=== PATIENT | male | born 1965 | race Two or more races ===

== ENCOUNTER 2023-07-10 11:25 | Inpatient (IN) | payer MEDICAID ==
[~2023-07-10] VITALS: Ht 157.5 cm; Wt 69.9 kg
[2023-07-10 12:06] LABS: EOSINOPHILS % (AUTO) 1.7 % (1.0-6.0); HEMATOCRIT 40.3 % (41-53); HEMOGLOBIN 13.4 g/dL (13.5-17.5); LYMPHOCYTES % (AUTO) 34.4 % (22.0-44.0); MEAN CORPUSCULAR HEMOGLOBIN 30.1 pg (26.0-34.0); MEAN CORPUSCULAR HGB CONC 33.3 G/dL (31.0-37.0); MEAN CORPUSCULAR VOLUME 90 fL (80-100); MONOCYTES # (AUTO) 0.4 K/uL (0.1-1.0); MONOCYTES % (AUTO) 4.8 % (2.0-9.0); NEUTROPHILS # (AUTO) 5.1 K/uL (1.8-7.7); NEUTROPHILS % (AUTO) 58.1 % (40.0-70.0); PLATELET COUNT (AUTO) 187 K/uL (150-450); RED BLOOD CELL COUNT(AUTO) 4.46 MIL/uL (4.50-5.90); RED CELL DISTRIBUTION WIDTH 13.7 % (11.5-14.5); WHITE BLOOD COUNT (AUTO) 8.7 K/uL (4.5-11.0)
[2023-07-10 12:14] LABS: ANION GAP 11 mmol/L (8-16); CALCIUM, TOTAL 8.7 mg/dL (8.8-10.5); CARBON DIOXIDE 21 mmol/L (22-29); CHLORIDE 101 mmol/L (98-107); GLOMERULAR FILTR. RATE CALC > 60 mL/min (>60); GLUCOSE,RANDOM 154 mg/dL (70-110); POTASSIUM 3.9 mmol/L (3.5-5.1); SODIUM SERUM 133 mmol/L (136-145); UREA NITROGEN, BLOOD 16 mg/dL (7-18)
[2023-07-10 12:20] LABS: ALANINE AMINOTRANSFERASE 32 U/L (12-78); ALBUMIN 3.4 g/dL (3.4-5.0); ALKALINE PHOSPHATASE 104 U/L (46-116); ASPARTATE AMINOTRANSFERASE 21 U/L (15-37); BILIRUBIN,TOTAL 0.4 mg/dL (0.1-1.0)
[2023-07-10 12:26] LABS: ALCOHOL, BLOOD (SERUM) < 3 mg/dL (0-10)
[2023-07-10] MEDS ORDERED: QUEtiapine FUMARATE 100 MG TABLET PO PRN (12:30)
[2023-07-10] MEDS ORDERED: ZOLPIDEM TARTRATE 10 MG TABLET PO PRN (12:30)
[2023-07-10] MEDS ORDERED: LORazepam 2 MG TABLET PO PRN (12:30)
[2023-07-10] MEDS: QUEtiapine FUMARATE 100 MG TABLET PO ONE ×2 (13:31→13:36)
[2023-07-10] MEDS: LORazepam 1 MG TABLET PO ONE ×2 (13:31→13:35)
[2023-07-10 14:32] LABS: COVID AG,FIA SOURCE NASAL SWAB
[2023-07-10 14:54] LABS: SARS-COV2 (COVID) ANTIGEN,FIA Negative (Negative)
[2023-07-10 16:16] LABS: GLUCOMETER DEV NAME(LOC) BV2S.; GLUCOSE,POINT OF CARE 107 MG/DL (70-110)
[2023-07-10 17:05] VITALS: PULSE 102; RESP 18; TEMP 97.7; O2SAT 97
[2023-07-10] MEDS ORDERED: PERMETHRIN 5% 60 GM CREAM TP ONE (18:00)
[2023-07-10] MEDS: METOPROLOL TARTRATE 25 MG TABLET PO SCH (18:28)
[2023-07-10 20:50] VITALS: BP 146/97; PULSE 91; RESP 19; TEMP 98.8; O2SAT 97
[2023-07-11 01:57] VITALS: BP 104/84; PULSE 89; RESP 18; TEMP 97.8; O2SAT 100
[2023-07-11] MEDS ORDERED: PERMETHRIN 5% 60 GM CREAM TP ONE (07:00)
[2023-07-11] MEDS: MetFORMIN HCL 500 MG TABLET PO SCH (07:14)
[2023-07-11 07:26] LABS: GLUCOMETER DEV NAME(LOC) 3E.C; GLUCOSE,POINT OF CARE 101 MG/DL (70-110)
[2023-07-11 10:01] VITALS: BP 121/79; PULSE 94; RESP 17; TEMP 97.9; O2SAT 98
[2023-07-11] MEDS: METOPROLOL TARTRATE 25 MG TABLET PO SCH (10:55)
[2023-07-11] MEDS: ESCITALOPRAM OXALATE 10 MG TABLET PO SCH (12:36)
[2023-07-11] MEDS ORDERED: ONDANSETRON HCL 4 MG TABLET PO PRN (14:15)
[2023-07-11] MEDS ORDERED: LOPERAMIDE HCL 2 MG CAPSULE PO PRN (14:15)
[2023-07-11] MEDS ORDERED: DOCUSATE SODIUM 100 MG CAPSULE PO PRN (14:15)
[2023-07-11] MEDS ORDERED: ALBUTEROL SULFATE HFA 90 MCG/PUFF 8 GM INHALER IH PRN (14:15)
[2023-07-11] MEDS ORDERED: MAGNESIUM HYDROXIDE SUSPENSION 30 ML UDCUP PO PRN (14:15)
[2023-07-11] MEDS ORDERED: PETROLATUM,WHITE 28 GM JELLY TP PRN (14:15)
[2023-07-11] MEDS ORDERED: IBUPROFEN 400 MG TABLET PO PRN (14:15)
[2023-07-11] MEDS ORDERED: GuaiFENesin/D-METHORPHAN [SUGAR-FREE] 200-20MG/10 ML SYRUP UDCUP PO PRN (14:15)
[2023-07-11] MEDS ORDERED: ACETAMINOPHEN 325 MG TABLET PO PRN (14:15)
[2023-07-11] MEDS ORDERED: NICOTINE 14 MG/24 HOUR PATCH TD PRN (14:15)
[2023-07-11] MEDS ORDERED: MAG HYDROX/ALUMINUM HYD/SIMETH ES 30 ML SUSPENSION UDCUP PO PRN (14:15)
[2023-07-11] MEDS ORDERED: CloNIDine HCL 0.1 MG TABLET PO PRN (14:15)
[2023-07-11 22:24] VITALS: BP 124/78; PULSE 89; RESP 18; TEMP 97.8; O2SAT 98
[2023-07-12 06:26] LABS: GLUCOMETER DEV NAME(LOC) 3E.C; GLUCOSE,POINT OF CARE 97 MG/DL (70-110)
[2023-07-12] MEDS: MetFORMIN HCL 500 MG TABLET PO SCH (06:55)
[2023-07-12] MEDS: METOPROLOL TARTRATE 25 MG TABLET PO SCH (08:52)
[2023-07-12] MEDS: ESCITALOPRAM OXALATE 10 MG TABLET PO SCH (08:52)
[2023-07-12 09:26] VITALS: BP 130/80; PULSE 79; RESP 17; TEMP 98; O2SAT 98
[2023-07-12 09:30] LABS: THYROID STIMULATING HORMONE 1.52 uIU/mL (0.36-3.74)
[2023-07-12 13:18] LABS: CHOL/HDL RATIO 5.3 (4.2-7.3)
[2023-07-12 21:57] VITALS: BP 118/62; PULSE 86; RESP 18; TEMP 97; O2SAT 97
[2023-07-13] MEDS: MetFORMIN HCL 500 MG TABLET PO SCH (06:51)
[2023-07-13 07:06] LABS: GLUCOMETER DEV NAME(LOC) 3E.C; GLUCOSE,POINT OF CARE 102 MG/DL (70-110)
[2023-07-13] MEDS: METOPROLOL TARTRATE 25 MG TABLET PO SCH (09:00)
[2023-07-13 09:29] VITALS: BP 102/52; PULSE 99; RESP 16; TEMP 97.4; O2SAT 99
[2023-07-13] MEDS: ESCITALOPRAM OXALATE 10 MG TABLET PO SCH (09:31)
[2023-07-13 21:58] VITALS: RESP 18
[2023-07-14 05:31] LABS: GLUCOMETER DEV NAME(LOC) 3E.C; GLUCOSE,POINT OF CARE 85 MG/DL (70-110)
[2023-07-14] MEDS: MetFORMIN HCL 500 MG TABLET PO SCH (06:37)
[2023-07-14] MEDS: METOPROLOL TARTRATE 25 MG TABLET PO SCH (09:00)
[2023-07-14] MEDS: ESCITALOPRAM OXALATE 10 MG TABLET PO SCH (09:38)
[2023-07-14 10:50] VITALS: BP 108/79; PULSE 70; RESP 18; TEMP 97.5; O2SAT 99
[2023-07-14 20:12] VITALS: BP 140/80; PULSE 83; RESP 18; TEMP 98.1; O2SAT 99
[2023-07-15 05:46] LABS: GLUCOMETER DEV NAME(LOC) 3E.C; GLUCOSE,POINT OF CARE 96 MG/DL (70-110)
[2023-07-15] MEDS: MetFORMIN HCL 500 MG TABLET PO SCH (06:37)
[2023-07-15 09:00] VITALS: BP 130/73; PULSE 84; RESP 18; TEMP 97.4; O2SAT 97
[2023-07-15] MEDS: ESCITALOPRAM OXALATE 10 MG TABLET PO SCH (09:24)
[2023-07-15] MEDS: METOPROLOL TARTRATE 25 MG TABLET PO SCH (09:24)
[2023-07-15 20:48] VITALS: BP 116/71; PULSE 76; RESP 18; TEMP 98; O2SAT 98
[2023-07-16] MEDS: MetFORMIN HCL 500 MG TABLET PO SCH (06:38)
[2023-07-16 07:06] LABS: GLUCOMETER DEV NAME(LOC) 3E.C; GLUCOSE,POINT OF CARE 84 MG/DL (70-110)
[2023-07-16] MEDS: METOPROLOL TARTRATE 25 MG TABLET PO SCH (09:00)
[2023-07-16 09:12] VITALS: BP 113/68; PULSE 87; RESP 18; TEMP 98.2; O2SAT 100
[2023-07-16] MEDS: ESCITALOPRAM OXALATE 10 MG TABLET PO SCH (09:15)
[2023-07-16 21:54] VITALS: BP 132/78; PULSE 72; RESP 17; O2SAT 99
[2023-07-17] MEDS: MetFORMIN HCL 500 MG TABLET PO SCH (06:40)
[2023-07-17 06:56] LABS: GLUCOMETER DEV NAME(LOC) 3E.C; GLUCOSE,POINT OF CARE 90 MG/DL (70-110)
[2023-07-17] MEDS: ESCITALOPRAM OXALATE 10 MG TABLET PO SCH (09:29)
[2023-07-17] MEDS: METOPROLOL TARTRATE 25 MG TABLET PO SCH (09:29)
[2023-07-17 09:41] VITALS: BP 100/74; PULSE 74; RESP 18; TEMP 97.5; O2SAT 100
[2023-07-17 20:23] VITALS: BP 100/57; PULSE 83; RESP 16; TEMP 98.4; O2SAT 97
[2023-07-18 05:31] LABS: GLUCOMETER DEV NAME(LOC) 3E.C; GLUCOSE,POINT OF CARE 84 MG/DL (70-110)
[2023-07-18] MEDS: MetFORMIN HCL 500 MG TABLET PO SCH (06:33)
[2023-07-18 08:57] VITALS: BP 122/80; PULSE 73; RESP 18; TEMP 97.6; O2SAT 100
[2023-07-18] MEDS: ESCITALOPRAM OXALATE 10 MG TABLET PO SCH (11:32)
[2023-07-18] MEDS: MULTIVITAMINS WITH MINERALS, THERAPEUTIC TABLET PO SCH (11:33)
[2023-07-18] MEDS: METOPROLOL TARTRATE 25 MG TABLET PO SCH (11:35)
[2023-07-18 22:03] VITALS: BP 115/70; PULSE 78; RESP 17; TEMP 97.6; O2SAT 96
[2023-07-19 05:46] LABS: GLUCOMETER DEV NAME(LOC) 3E.C; GLUCOSE,POINT OF CARE 88 MG/DL (70-110)
[2023-07-19] MEDS: MetFORMIN HCL 500 MG TABLET PO SCH (06:35)
[2023-07-19] MEDS: METOPROLOL TARTRATE 25 MG TABLET PO SCH (09:00)
[2023-07-19 09:03] VITALS: BP 115/60; PULSE 60; RESP 18; TEMP 97.6; O2SAT 97
[2023-07-19] MEDS: ESCITALOPRAM OXALATE 10 MG TABLET PO SCH (09:46)
[2023-07-19] MEDS: MULTIVITAMINS WITH MINERALS, THERAPEUTIC TABLET PO SCH (09:47)
[2023-07-19 22:24] VITALS: RESP 18
[2023-07-20] MEDS: MetFORMIN HCL 500 MG TABLET PO SCH (06:32)
[2023-07-20 06:56] LABS: GLUCOMETER DEV NAME(LOC) 3E.C; GLUCOSE,POINT OF CARE 85 MG/DL (70-110)
[2023-07-20] MEDS: METOPROLOL TARTRATE 25 MG TABLET PO SCH (11:22)
[2023-07-20] MEDS: MULTIVITAMINS WITH MINERALS, THERAPEUTIC TABLET PO SCH (11:22)
[2023-07-20] MEDS: ESCITALOPRAM OXALATE 10 MG TABLET PO SCH (11:23)
[2023-07-20] MEDS ORDERED: ESCI-8 PO (12:08)
[2023-07-20] MEDS ORDERED: METF-1211 PO (12:08)
[2023-07-20] MEDS ORDERED: MULT-1239 PO (12:08)
[2023-07-20] MEDS ORDERED: METO25 PO (12:08)
[2023-07-20 14:05] VITALS: BP 136/85; PULSE 71; RESP 18; TEMP 97; O2SAT 98
== END 2023-07-20 14:45 | disposition home or self-care (01) | DRG 751 ==
LOC: EMS 11:25 → 3EI 14:30 → B2S 14:38 → 3EI 22:10
PROVIDERS: ADMIT Psychiatry & Neurology Psychiatry; ATTEND Psychiatry & Neurology Psychiatry
DX: F33.2 Major depressive disorder, recurrent severe without psychotic features (principal); E87.1 Hypo-osmolality and hyponatremia; R45.851 Suicidal ideations; E11.9 Type 2 diabetes mellitus without complications; I10 Essential (primary) hypertension; D64.9 Anemia, unspecified; Z20.822 Contact with and (suspected) exposure to COVID-19; Z56.0 Unemployment, unspecified; Z79.899 Other long term (current) drug therapy; Z86.73 Personal history of transient ischemic attack (TIA), and cerebral infarction without residual deficits
CPT/HCPCS: 80053; 80061; 82962; 83036; 84443; 85025; 93925; G0480

== ENCOUNTER 2024-08-19 19:08 | Emergency (ER) | payer MEDICAID ==
[~2024-08-19] VITALS: Ht 162.6 cm; Wt 90.9 kg
[~2024-08-19 19:08] MED LIST: ESCI-8 PO; METF-1211 PO; METO25 PO; MULT-1239 PO
[2024-08-19 19:17] VITALS: TEMP 98.6
[2024-08-19 19:17] LABS: COVID AG,FIA SOURCE NASAL SWAB
[2024-08-19 19:37] LABS: BASOPHILS % (AUTO) 0.9 % (0.0-2.0); EOSINOPHILS % (AUTO) 2.7 % (1.0-6.0); HEMATOCRIT 42.1 % (41-53); HEMOGLOBIN 14.1 g/dL (13.5-17.5); LYMPHOCYTES # (AUTO) 3.7 K/uL (1.0-4.8); LYMPHOCYTES % (AUTO) 28.7 % (22.0-44.0); MEAN CORPUSCULAR HEMOGLOBIN 31.1 pg (26.0-34.0); MEAN CORPUSCULAR HGB CONC 33.5 G/dL (31.0-37.0); MEAN CORPUSCULAR VOLUME 93 fL (80-100); MONOCYTES # (AUTO) 0.7 K/uL (0.1-1.0); MONOCYTES % (AUTO) 5.6 % (2.0-9.0); NEUTROPHILS % (AUTO) 62.1 % (40.0-70.0); PLATELET COUNT (AUTO) 173 K/uL (150-450); RED BLOOD CELL COUNT(AUTO) 4.53 MIL/uL (4.50-5.90); RED CELL DISTRIBUTION WIDTH 13.2 % (11.5-14.5); WHITE BLOOD COUNT (AUTO) 12.9 K/uL (4.5-11.0)
[2024-08-19 19:37] LABS: SARS-COV2 (COVID) ANTIGEN,FIA Negative (Negative)
[2024-08-19 20:02] LABS: ANION GAP 9 mmol/L (8-16); CARBON DIOXIDE 25 mmol/L (22-29); CHLORIDE 100 mmol/L (98-107); GLOMERULAR FILTR. RATE CALC > 60 mL/min (>60); GLUCOSE,RANDOM 182 mg/dL (70-110); SODIUM SERUM 134 mmol/L (136-145); UREA NITROGEN, BLOOD 18 mg/dL (7-18)
[2024-08-19 20:16] LABS: ALCOHOL, BLOOD (SERUM) < 3 mg/dL (0-10)
[2024-08-19 20:22] LABS: ALCOHOL, URINE DRUG SCREEN NEGATIVE (NEGATIVE); AMPHET/METH SCREEN,URINE NEGATIVE (NEGATIVE); BARBITURATE SCREEN, URINE NEGATIVE (NEGATIVE); BENZODIAZEPINES SCREEN,URINE NEGATIVE (NEGATIVE); CANNABINOID SCREEN,URINE NEGATIVE (NEGATIVE); COCAINE SCREEN,URINE NEGATIVE (NEGATIVE); METHADONE SCREEN, URINE NEGATIVE (NEGATIVE); OPIATE SCREEN,URINE NEGATIVE (NEGATIVE); PHENCYCLIDINE SCREEN,URINE NEGATIVE (NEGATIVE)
[2024-08-19] MEDS ORDERED: CEPH-558 PO (22:51)
[2024-08-19] MEDS: CEPHALEXIN MONOHYDRATE 500 MG CAPSULE PO ONE (23:21)
[2024-08-20 04:42] VITALS: BP 163/85; PULSE 95; RESP 16; O2SAT 99
== END 2024-08-20 04:47 | disposition home or self-care (01) ==
LOC: EMS 19:08
DX: S90.811A Abrasion, right foot, initial encounter (principal); F03.90 Unspecified dementia, unspecified severity, without behavioral disturbance, psychotic disturbance, mood disturbance, and anxiety; E11.9 Type 2 diabetes mellitus without complications; I10 Essential (primary) hypertension; Z79.84 Long term (current) use of oral hypoglycemic drugs; Z20.822 Contact with and (suspected) exposure to COVID-19; X58.XXXA Exposure to other specified factors, initial encounter; Y93.89 Activity, other specified; Y92.89 Other specified places as the place of occurrence of the external cause; Y99.8 Other external cause status
CPT/HCPCS: 99285; 87426; 80048; 85025; 36415; 73630; 80307; G0480